=== PATIENT | male | born 1930 | race Caucasian/White ===

== ENCOUNTER 2016-12-06 16:30 | Inpatient (IN) | payer MEDICARE, OTHER ==
[~2016-12-06] VITALS: Ht 180.3 cm; Wt 80.1 kg
--- NOTE | ~2016-12-06 | CON ---
PATIENT'S NAME: KARTHIK MERAZ [facility] AGE: 86 Y [address] ROOM: [place] [address] LOCATION: [facility] ADMIT DATE: 12/06/2016 Consultation DISCHARGE DATE: FAMILY PHYSICIAN: Nolan Bautista MD ATTENDING PHYSICIAN: Nneka Gallegos CONSULTATION NOTE CHIEF COMPLAINT/REASON FOR CONSULTATION: Neck pain. 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 The patient had surgery of cervical corpectomy at C5 with decompression of spinal cord and removal of herniated disk on 12/08/2016. The patient tolerated the procedure well. The patient initially had symptoms of neck pain with radiculopathy pain radiating to his bilateral upper extremity and some lower extremity weakness. The patient reports that his symptoms has improved. He denies any radiculopathy pain or leg weakness. The patient is able to participate with PT and OT. The patient reports that he has a history of atrial fibrillation and has had ablation in 2009 at [facility] and pacemaker was also placed during that ablation. The patient reports that he was on a blood thinner, but was stopped after 6 months after the ablation. The patient currently denies chest pain, shortness of breath, abdominal pain, fever, chills, nausea, vomiting, or diarrhea. PAST MEDICAL HISTORY: 1. Atrial fibrillation. 2. Hypertension. 3. COPD. 4. Gout. 5. Long-term prednisone use. PAST SURGICAL HISTORY: 1. Appendectomy. 2. Recent surgery of cervical spinal cord decompression. 3. Ablation of atrial fibrillation. FAMILY HISTORY: Mother had a stroke and father had prostate cancer. SOCIAL HISTORY: He quit smoking 25 years ago. He is a retired [employer] worker. Seldomly drinks and he lives with his of 61 years. PATIENT'S NAME: KARTHIK MERAZ [facility] AGE: 86 Y [address] ROOM: [place] [address] LOCATION: [facility] ADMIT DATE: 12/06/2016 Consultation DISCHARGE DATE: FAMILY PHYSICIAN: Nolan Bautista MD ATTENDING PHYSICIAN: Nneka Gallegos MEDICATIONS: Please see MAR. REVIEW OF SYSTEMS: All systems have been reviewed and are negative except for what I mentioned in the HPI. PHYSICAL EXAMINATION: VITAL SIGNS: Temperature 97.4, blood pressure 167/72, respiratory rate of 12, and heart rate of 78. GENERAL APPEARANCE: The patient is alert and awake, sitting on his chair. HEENT: Head; normocephalic and atraumatic. Eyes; external ocular muscles intact. Ears; the patient wears hearing aid. Nose; no nasal discharge. NECK: The patient currently has a cervical collar and surgical site dressing is clean, dry, and intact. CHEST: Clear to auscultation bilaterally. No murmurs, rubs, or gallops. HEART: Irregularly irregular. No murmurs, rubs, or gallops heard. ABDOMEN: Soft, nontender, and nondistended. Bowel sounds present. EXTREMITIES: No edema. SKIN: Senile purpura on bilateral upper extremity. MUSCULOSKELETAL: Range of motion intact. No obvious effusion. LABELLING MACHINE OPERATOR: The patient is alert and oriented x3. Motor and sensory grossly intact. LABORATORY DATA: White blood cell count of 12.6, hemoglobin of 14.4, and platelets of 296,000. Glucose of 104, BUN of 24, creatinine of 1.2, sodium of 143, potassium of 4.1, and CO2 of 25. IMAGING STUDIES: EKG shows right bundle-branch block with possible underlying atrial fibrillation. Discernible P wave was not seen. Telemetry shows 16 runs of nonsustained ventricular tachycardia. ASSESSMENT AND PLAN: 1. Atrial fibrillation, presume persistent. The patient reports that he thought he was in normal sinus rhythm. However, on telemetry and EKG shows atrial fibrillation. Discussion was made with the patient about anticoagulation and workup including pacemaker interrogation. However, the patient reports that he does not want to have this workup done in this hospital and wants to follow up with his corporate wellness coordinator, Dr. Romero. Also discussed with the patient about blood thinners as patient has elevated CHADS-VASc score and is at risk for stroke. Even though patient cannot be started on anticoagulation due to his recent surgery, I instructed the patient to follow up with Dr. Romero about PATIENT'S NAME: KARTHIK MERAZ [facility] AGE: 86 Y [address] ROOM: [address] [address] LOCATION: [facility] ADMIT DATE: 12/06/2016 Consultation DISCHARGE DATE: FAMILY PHYSICIAN: Nolan Bautista MD ATTENDING PHYSICIAN: Nneka Gallegos anticoagulation. The patient also reports that he will follow up with Dr. Romero about his anticoagulation question (?). Continue his home medication of diltiazem extended release 360 mg p.o. daily. 2. Nonsustained ventricular tachycardia. Telemetry shows nonsustained ventricular tachycardia of 16 beats of run. The patient asymptomatic during this time. Discussed the patient about echocardiogram and pacemaker interrogation. The patient refused to have these studies done as he wants to be followed and taken care as an outpatient by his Cardiology, Dr. Romero. However, patient is open for electrolyte evaluation, and will acquire potassium and magnesium level. To keep magnesium greater than 2 and potassium greater than 4. The patient is asymptomatic. Follow up with Dr. Romero. 3. Hypertension, stable. Continue current medications. 4. Gout. Continue home medication of febuxostat. 5. History of osteoarthritis on long-term prednisone. Continue home dose of prednisone 5 mg daily. Greater than 40 minutes of spent on patient's care. Plan and assessment were discussed with the patient. The patient currently does not want to have echocardiogram and pacemaker interrogation during his stay and wants to have this workup with his corporate wellness coordinator, Dr. Romero. Will acquire electrolytes to make sure potassium and magnesium are greater than 4 and 2 respectively. Thank you very much for involving us in this patient's care. MD CHATA OTERO/sara /[id number] d: 12/09/16 224 t: 12/12/16903, CONSULTATION REPORT
--- NOTE | ~2016-12-06 | OR ---
PATIENT'S NAME: KARTHIK MERAZ [facility] AGE: 86 Y [address] ROOM: [place] [address] LOCATION: [facility] ADMIT DATE: 12/06/2016 OR/Procedure Report DISCHARGE DATE: FAMILY PHYSICIAN: Nolan Bautista MD ATTENDING PHYSICIAN: Nneka Bello SURGEON: Nneka Bello MD PHARM SPEC: See Moura. DATE OF PROCEDURE: 12/08/2016 PREOPERATIVE DIAGNOSIS: Cervical spinal cord compression secondary to herniated disk. POSTOPERATIVE DIAGNOSIS: Cervical spinal cord compression secondary to herniated disk. PROCEDURES PERFORMED: 1. Cervical corpectomy at C5 with decompression of spinal cord and removal of herniated disks including foraminotomy. 2. Structural allograft fusion with expandable cage by Globus. 3. Morselized autograft fusion. 4. Anterior cervical plating from C4 to C6 with Xtend cervical plate by Glob. 5. Use of intraoperative microscope. ANESTHESIA: General. ANESTHESIA PROVIDER: Faustino Giron MD HISTORY: The patient is an 86-year-old male who was admitted with generalized weakness, worse on the right side. Imaging studies showed a large mass pressing on his spinal cord at the level of the C5 vertebra. The impression was a large disk herniation. The patient was becoming progressively quadriparetic and could not even open his right hand fully. I recommended surgery to relieve the pressure on the patient's spinal cord and hopefully help him regain some function. I recommended the procedure described above. I explained the benefits, risks, and alternatives exhaustively to the patient and his . I basically told them that without surgery, the patient was progressing to paralysis, and with surgery, we could at least hope to stabilize his level of function and maybe even allow him to regain some function. There is, however, a very small risk of paralysis from the surgery. The patient and were agreeable to surgery. Consent was obtained. The patient was brought to the operating room for surgery. PROCEDURE IN DETAIL: In the operating room, the patient was placed in a supine position. Anesthesia was induced. He was intubated. A roll was PATIENT'S NAME: KARTHIK MERAZ [facility] AGE: 86 Y [address] ROOM: [place] [address] LOCATION: [facility] ADMIT DATE: 12/06/2016 OR/Procedure Report DISCHARGE DATE: FAMILY PHYSICIAN: Nolan Bautista MD ATTENDING PHYSICIAN: Nneka Bello placed under his shoulders, and his head was in a gel donut. The incision line was marked out along the anterior border of the right sternomastoid muscle. The whole area was prepped and draped in a sterile fashion. Local anesthesia was infiltrated. The incision was opened and deepened to the level of the platysma. The platysma was divided. The anterior border of the sternomastoid muscle was identified. Further dissection along the anterior border of the sternomastoid revealed the omohyoid muscle. Dissection was then carried out in the gap between the omohyoid and sternomastoid muscles where the carotid arteries retracted laterally and the esophagus and trachea retracted medially using the Cloward handheld retractors. Dissection continued until we got to the anterior surface of the spine. The prevertebral tissue was swept aside. The longus colli muscles were undermined on both sides, and belt sander retractors were placed. Intraoperative x-ray was obtained to verify level. Diskectomy was then carried out at C4-5 and C5-6, thereby isolating the C5 vertebra. For the diskectomy, the disk material was incised with a #15 blade, and pituitary rongeur was used to pull out disk material. A curette was used to scrape out more disk, which was removed with a pituitary rongeur. The distraction pins were used to distract the disk spaces to help visualize the disk material in the depths of the disk space. Microscope was brought in at this point, and under microscopic vision, the diskectomy was continued. Having isolated the C5 vertebra, the vertebral bone was removed piecemeal using a Leksell rongeur. This bone was saved to be used subsequently for autograft fusion. As we removed the vertebral body, we progressively got closer to the herniated disk. Once the back of the vertebra was reached, we began to see disk material. Using the Dull nerve hook, the disk material was gently pulled out and retrieved with a pituitary rongeur. Several small pieces of disk and some fairly sizable ones were removed. The posterior longitudinal ligament was also removed. The dura began to bulge back almost immediately and became more convex, whereas it had been compressed previously. Spinal fluid could be seen flowing underneath the dura. Decompression continued until I felt that we had adequate decompression of the spinal cord. Bilateral foraminotomies were carried out at C4-5 and C5-6. The adjacent endplates of C4 and C6 were then prepared for fusion. We measured out the vertebral body defects where the corpectomy had been performed. An appropriate-sized cage by Globus, the expandable cage, was picked out. This cage was filled with the patient's own bone which had been harvested earlier. The distraction pins were used to open the corpectomy defect. The cage was then inserted carefully and expanded to fill the PATIENT'S NAME: KARTHIK MERAZ [facility] AGE: 86 Y [address] ROOM: [address] [address] LOCATION: [facility] ADMIT DATE: 12/06/2016 OR/Procedure Report DISCHARGE DATE: FAMILY PHYSICIAN: Nolan Bautista MD ATTENDING PHYSICIAN: Nneka Bello corpectomy defect. We had a very snug fit. The spikes on either end of the cage engaged effectively into the undersurface of C4 and superior surface of C6. Next, an appropriate length of anterior cervical plate was selected. Two screws were attached to C4 and two screws to C6. A final x-ray was obtained to verify that the cage, plate, and screws were in satisfactory position. Irrigation was used to wash out the debris. Hemostasis was achieved. The incision was closed in layers using appropriate suture materials. Dermabond was used to close the skin. A sterile dressing was applied. The patient's anesthesia was reversed. He was extubated and taken to the recovery room to continue his recovery. I was present at and performed every aspect of this procedure, assisted at different stages by the operating room nurses. There were no apparent intraoperative complications. Swabs, needles, and instruments were all accounted for at the end of the case. Estimated blood loss was less than 200 mL. There was no reason for blood transfusion. I expect the patient to benefit from this procedure. I have already told him that improvement may not be immediate; however, hopefully, as time goes on, he should regain some function in his extremities. NNEKA BELLO MD CNO/modl /[id number] CC: Nolan Bautista MD d: 12/09/16 1159 t: 12/09/16 1716, OPERATIVE SUMMARY
--- NOTE | ~2016-12-06 | HP ---
PATIENT'S NAME: ZBIGNIEW MCDONALD [facility] AGE: 86 Y [address] ROOM: [address] [address] LOCATION: [facility] ADMIT DATE: 12/06/2016 History & Physical DISCHARGE DATE: FAMILY PHYSICIAN: Nolan Bautista MD ATTENDING PHYSICIAN: Nneka Bello DATE OF SERVICE: 12/06/2016 The patient referred by Dr. Bautista in [place]. REASON FOR REFERRAL: Weakness. PATIENT IDENTIFICATION: Zbigniew Mcdonald is an 86-year-old male. PRESENTING COMPLAINT: Weakness. HISTORY OF PRESENT ILLNESS: The patient says he has been getting numbness in his upper and lower extremities. Symptoms began about a month ago and have gotten progressively worse. In addition to the numbness and tingling, he also has weakness. He was able to ride his lawnmower two weeks ago. This week, however, he is barely able to ambulate. When he walks, he is very unsteady and has to walk with a walker. He says before all this started, he was walking fine. He also noticed that he is unable to extend the fingers of his right hand. The fingers are curled up, and it is difficult for him to extend his hand fully or to lift his right leg up off the bed. The patient was seen by Dr. Bautista today and had a CT scan of the cervical spine. The CT scan does not show any significant stenosis. There might be some calcification of the ligamentum flavum about the C4-[address] Bautista contacted me about the patient's management, and I requested for the patient to be transferred. He is being admitted for workup regarding this weakness including myelogram, both cervical and lumbar. PAST MEDICAL HISTORY: The patient has a pacemaker for atrial fibrillation. Because of this pacemaker, he is unable to have an MRI scan. He has also had an ablation for atrial fibrillation. Other medical problems include previous right knee scope, previous left hand surgery, appendectomy, bilateral cataract, right carpal tunnel and ulnar nerve release, left carpal tunnel repair. The patient has pneumonia and previous history of gout. PATIENT'S NAME: ZBIGNIEW MCDONALD [facility] AGE: 86 Y [address] ROOM: [place] [address] LOCATION: [facility] ADMIT DATE: 12/06/2016 History & Physical DISCHARGE DATE: FAMILY PHYSICIAN: Nolan Bautista MD ATTENDING PHYSICIAN: Nneka Bello CURRENT MEDICATIONS: 1. Tylenol. 2. Atorvastatin. 3. Diltiazem. 4. Tramadol. 5. Uloric. 6. Aspirin. 7. Jeanna. 8. Prednisone. 9. Enalapril. 10. Mucinex. 11. Chlorthalidone. ALLERGIES: PLEASE SEE CHART. SOCIAL HISTORY: The patient is . FAMILY HISTORY: There is no family history relevant to present problems. REVIEW OF SYSTEMS: A 10-point review of systems was carried out. The only abnormal finding is the weakness the patient presents with. PHYSICAL EXAMINATION: GENERAL: On examination, the patient is a pleasant elderly gentleman, who is alert and cooperative through the examination. VITAL SIGNS: His blood pressure is 155/178, pulse rate is 74. NEUROLOGIC: His speech is clear. Cranial nerves: No deficits seen. Motor examination: The patient has weakness in his upper and lower extremities. In his deltoids, he is 4 on the right and 5 on the left. Biceps are 4+ bilaterally, triceps are 4 bilaterally. Hip flexors: His right hip flexor is barely a 3, the left one is a 4, quadriceps 5, dorsi and plantar flexors 5. Reflexes: The patient's reflexes are significantly increased, particularly the knee jerk on the right side. EXTREMITIES: The patient has some curling of the fingers on the right side. He is unable to extend his hand fully. He has bruising to his skin. SKIN: No skin rashes or skin masses. HEENT: His head is atraumatic. Eyes and ears: No evidence of trauma. Gait is not tested. CARDIOVASCULAR SYSTEM: Heart sounds are present. RESPIRATORY SYSTEM: The patient is not short of breath at bedside. PATIENT'S NAME: ZBIGNIEW MCDONALD [facility] AGE: 86 Y [address] ROOM: [address] [address] LOCATION: [facility] ADMIT DATE: 12/06/2016 History & Physical DISCHARGE DATE: FAMILY PHYSICIAN: Nolan Bautista MD ATTENDING PHYSICIAN: Nneka Bello ABDOMEN: Protuberant. REVIEW OF IMAGING STUDIES: The patient has had a CT scan of the cervical spine performed today. The CT scan showed some stenosis of the C4-5 level. Unfortunately, the CAT scan does not show the spinal cord in detail, and it is difficult to really see the amount of stenosis the patient has. ASSESSMENT: An 86-year-old male with progressive weakness of his extremities. Imaging studies suggest spinal stenosis at the C4-5 level. The patient is unable to undergo MRI scan because he has a pacemaker. MEDICAL DECISION MAKING: I reviewed the situation with the patient and his . I told them that the patient probably has compression of his spinal cord at some level. The other consideration would be Joanne Gehrig disease. The patient has been scheduled for myelogram tomorrow to help identify the cause of his weakness. His treatment will depend on the myelogram findings. NNEKA BELLO MD CNO/modl /[id number] CC: Nolan Bautista MD D: [id number] T: [id number] HISTORY & PHYSICAL
--- NOTE | ~2016-12-06 | DS ---
PATIENT'S NAME: KARTHIK MERAZ [facility] AGE: 86 Y [address] ROOM: [address] [address] LOCATION: [facility] ADMIT DATE: 12/06/2016 Discharge Summary DISCHARGE DATE: 12/11/2016 FAMILY PHYSICIAN: Nolan Bautista MD ATTENDING PHYSICIAN: Estrellita Gallegos REASON FOR ADMISSION: The patient was referred by Dr. Bautista in [place] with weakness in all his extremities. Weakness that came on over the last couple of weeks prior to admission. The patient had gone from being able to mow his lawn or ride his lawnmower to the point where he was very unsteady and barely able to ambulate. It was not possible to perform MRI for the patient. He, therefore, had a cervical myelogram. The cervical myelogram showed a very large disk herniation at the level of C5 with significant spinal cord compression. TREATMENT RENDERED: The patient was taken to the operating room on 12/08/2016. He underwent cervical corpectomy at the C5 level with fusion and instrumentation. Postoperatively, his weakness improved dramatically and he became able to feed himself again and to ambulate. He was also assisted by Physical Therapy. By 12/11/2016, the patient was well enough to go home and was discharged on that day. 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 PLAN: The patient will be followed up in the Neurosurgery Clinic to see how he is doing. ESTRELLITA GALLEGOS MD CNO/modl /[id number] CC: Nolan Bautista MD d: 01/07/17 0646 t: 01/07/17 1509, DISCHARGE SUMMARY
--- NOTE | ~2016-12-06 | CON ---
PATIENT'S NAME: RAH MERAZH Hermilo [facility] AGE: 86 Y [address] ROOM: [place] [address] LOCATION: [facility] ADMIT DATE: 12/06/2016 Consultation DISCHARGE DATE: FAMILY PHYSICIAN: Nolan Bautista MD ATTENDING PHYSICIAN: Nneka Gallegos consult for Dr. Gallegos. HISTORY OF PRESENT ILLNESS: This 86-year-old gentleman is referred for rehab evaluation and possibly admission. He was, as per history and physical, admitted on 12/06/2016 and did undergo cervical spine corpectomy C5 and cervical spine decompression, most probably C5-6, disk decompression of C5-6, and fusion with plating done on 12/08/2016, details on record. He was having marked weakness, numbness, and tingling in bilateral upper extremities, and to some extent, bilateral lower extremities. 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 Possibly, he will go further evaluation, possibly surgical procedure on the lumbar spine. However, at the present time, he gives past history as follows: 1. History of status post pacemaker with atrial fibrillation. 2. History of status post ablation for atrial fibrillation. 3. Status post right knee scope. 4. Left hand carpal tunnel syndrome relief and redo. 5. Status post appendectomy. 6. Bilateral cataract extractions. 7. Status post right carpal tunnel release. 8. Status post right ulnar nerve mobilization. 9. History of gout. 10. History of pneumonia, and recovered well. SOCIAL HISTORY: He does not smoke and/or drink alcohol. PHYSICAL EXAMINATION: GENERAL: He is now alert, oriented, slightly impulsive. VITAL SIGNS: Blood pressure 153/65, temperature 97.6, pulse 84, and respiration rate 12. He stands 5 feet 11 inches and weighs 79.6 kg. NEUROLOGIC: He can move all 4s. Muscle strength throughout is, at the present time, about 3+, especially in bilateral upper extremities, 4- with decreased endurance. His tendon reflexes are 1+ throughout. He has good bowel and bladder control. PATIENT'S NAME: KARTHIK MERAZ [facility] AGE: 86 Y [address] ROOM: [place] [address] LOCATION: [facility] ADMIT DATE: 12/06/2016 Consultation DISCHARGE DATE: FAMILY PHYSICIAN: Nolan Bautista MD ATTENDING PHYSICIAN: Nneka Gallegos He has atrophy in bilateral thenar imminences, status post carpal tunnel release as stated above. MEDICATIONS: He is on the following medications: 1. Zofran. 2. Morphine sulfate. 3. Halcion. 4. Fleet Enema. 5. Dulcolax. 6. Tigan. 7. NaCl 0.9%. 8. Prednisone. 9. Claritin. 10. Vasotec. 11. Cardizem. 12. Tramadol. 13. Uloric. 14. [place]. 15. Lipitor. 16. Aspirin. 17. Tylenol. 18. Cefazolin. 19. Phenergan. 20. Dilaudid. 21. Fentanyl. 22. Decadron. ASSESSMENT AND PLAN: At the present time, he is able to show muscle strength of about 4- to 3+ throughout with marked decreased endurance, especially in bilateral upper extremities. He has been initiated on PT and OT, which I will continue. He is at risk of falling and needs to have hands-on when up and around. I feel that this gentleman will benefit from intensive rehabilitation of about 2 weeks, and planning to see if he would undergo back surgery for lumbar spine stenosis and discharge thereafter with outpatient therapy. Thank you for this referral. All the above has been explained to him in detail. He verbalized understanding and agreement. PATIENT'S NAME: KARTHIK MERAZ [facility] AGE: 86 Y [address] ROOM: [place] [address] LOCATION: [facility] ADMIT DATE: 12/06/2016 Consultation DISCHARGE DATE: FAMILY PHYSICIAN: Nolan Bautista MD ATTENDING PHYSICIAN: Nneka Gallegos CIPRIANO PATEL MD WMS/modl /[id number] d: 12/09/16 1136 t: 05/30/17 0714, CONSULTATION REPORT
[2016-12-06] MEDS ORDERED: CARTIA XT180 MG PO (18:03)
[2016-12-06] MEDS ORDERED: LIPITOR20 M1 PO (18:03)
[2016-12-06] MEDS ORDERED: ENALAPRIL MALEAT5 MG PO (18:03)
[2016-12-06] MEDS ORDERED: ALLEGRA180 MG PO (18:04)
[2016-12-06] MEDS ORDERED: HYGROTON25 MG PO (18:04)
[2016-12-06] MEDS ORDERED: ULORIC80 MG PO (18:04)
[2016-12-06] MEDS ORDERED: ASPIRIN LO-DOSE81 MG PO (18:04)
[2016-12-06] MEDS ORDERED: ULTRAM50 MG PO (18:04)
[2016-12-06] MEDS ORDERED: TYLENOL325 MG PO (18:05)
[2016-12-06] MEDS ORDERED: DELTASONE5 MG PO (18:05)
--- NOTE | 2016-12-06 19:18 | NUR ---
Pt is an 86 yo male admitted by private vehicle from [facility]. patient lives in [place] w/. He states they went to [place] on November 02 and the numbness and tingling started in his hands at that time. He went to the dr, was told to go to , that helped a little, but then didn't seem to help and he hurt one day worse after therapy, did go to a chiropractor which seemed to help, but his numbness and weakness is progressing. his feet are now numb, he can't walk for the last 3-4 days. has been using a w/c to get around. patient used to work for the [employer] for years, has been retired for a little over 30 years. Saline lock is started in left upper antecubital space on 2nd try. Education is given as documented. patient and deny questions. pneumatics are on bilat calves. patient rhona well. call light is within reach. patient denies needs. fall and allergy bracelets on. Report is given to CATHY Christian.
[2016-12-06 23:49] LABS: BASOPHIL # 0.1 K/uL (0.0-0.2); BASOPHIL % 0.6 %; EOSINOPHIL # 0.4 K/uL (0.0-0.5); EOSINOPHIL % 4.1 %; HEMATOCRIT 40.1 % (33.0-50.0); HEMOGLOBIN 13.5 g/dL (11.0-16.0); IMMATURE GRANULOCYTE % 0.4 %; LYMPHOCYTE % 18.6 %; MCH 31.4 pg (27.0-34.0); MCHC 33.7 gm/dL (32.0-36.5); MCV 93.3 fl (83.0-98.0); MONOCYTE % 9.2 %; MPV 9.5 fl (9.4-12.4); NEUTROPHIL % 67.1 %; NRBC % 0 /100WBC (0-0.00); PLATELET COUNT 271 K/uL (150-450); RDW-CV 12.8 % (11.9-14.6); WBC 10.5 K/uL (4.0-11.0)
[2016-12-06 23:59] LABS: INR - (THERAPEUTIC) 0.95 (0.92-1.07); PTT 24 SECONDS (25-32)
[2016-12-07 00:07] LABS: ALBUMIN 3.2 gm/dL (3.5-5.0); ANION GAP 14.9 (10.0-19.0); CALCIUM 8.7 mg/dL (8.5-10.5); CREATININE 1.4 mg/dL (0.6-1.3); POTASSIUM 3.9 mMol/L (3.7-5.1); TOTAL BILIRUBIN 0.4 mg/dL (0.0-1.5); TOTAL PROTEIN 5.9 g/dL (6.0-8.4)
--- NOTE | 2016-12-07 04:28 | NUR ---
Significant Event: PATIENT A/OX3. STATES NUMBNESS AND TINGLING TO HANDS AND FEET. PAIN TO RIGHT SHOULDER. ON SCHEDULED TRAMADOL AND TYLENOL. WEAKNESS NOTED IN ALL EXTREMITIES. RIGHT HAND CONTRACTED AND DOES NOT EXTEND OPEN ALL OF THE WAY. UP 1 ASSIST GAIT BELT AND WALKER. PACED RHYTHM. AFEBRILE. SBPS RANGE FROM 130S-150S. HR 60S-8-S. LUNGS CLEAR ON ROOM AIR. SKIN TEAR TO BOTH ELBOWS BILATERALLY. PETROLEUM GAUZE, ABD, AND GAUZE WRAP APPLIED. SCATTERED BRUISING. ABRASIONS AND BRUISINGS TO FEET BILATERALLY. SCCDS INTACT. IV TO LEFT AC SALINE LOCKED. REGULAR DIET. NO CAFFEINE DUE TO MYELOGRAM IN AM. MYELOGRAM OF CERVICAL/LUMBAR/THORACIC IN AM. TAKES MEDS WHOLE. Follow up: MYELOGRAM IN AM.
--- NOTE | 2016-12-07 13:28 | NUR ---
Significant Event: PT ALERT AND ORIENTED X3. PERRLA. NUMBNESS/TINGLING REMAIN TO HANDS/FEET. GENERALIZED WEAKNESS; MOVES ALL EXTREMITIES. TRANSFERS WITH 1-ASSIST/GAIT BELT/WALKER. PT HAS A PACEMAKER. VITAL SIGNS STABLE; ON ROOM AIR. HAS COMPLAINED OF PAIN TO R)SHOULDER; SCHEDULED TYLENOL AND ULTRAM HAVE BEEN HELPING WITH PAIN. SKIN TEARS TO BILATERAL ELBOWS; L)ELBOW COVERED WITH PETROLEUM GAUZE/KERLIX. BILATERAL CALF PUMPS ON. PT WENT DOWN FOR A MYELOGRAM PER DR. BELLO. DISCUSSED THE RESULTS WITH THE PT AND ; WILL BE PROCEEDING WITH SURGERY TOMORROW. PT WILL BE NPO AT MIDNIGHT FOR A CERVICAL CORPECTOMY. IV FLUIDS TO BE STARTED BEFORE THE PT GOES TO SURGERY. Follow up: PRE-OP CHECK-LIST; NPO AT MIDNIGHT; SURGERY TOMORROW ABOUT 1100.
[2016-12-07 13:34] LABS: BASOPHIL # 0.1 K/uL (0.0-0.2); BASOPHIL % 0.6 %; EOSINOPHIL # 0.2 K/uL (0.0-0.5); EOSINOPHIL % 1.2 %; HEMATOCRIT 42.8 % (33.0-50.0); HEMOGLOBIN 14.4 g/dL (11.0-16.0); IMMATURE GRANULOCYTE # 0.1 K/uL (0.0-0.3); IMMATURE GRANULOCYTE % 0.4 %; LYMPHOCYTE # 1.1 K/uL (0.8-4.0); LYMPHOCYTE % 8.4 %; MCH 31.5 pg (27.0-34.0); MCHC 33.6 gm/dL (32.0-36.5); MCV 93.7 fl (83.0-98.0); MONOCYTE # 0.5 K/uL (0.0-1.0); MONOCYTE % 4.3 %; NEUTROPHIL # (ANC) 10.7 K/uL (1.4-9.0); NEUTROPHIL % 85.1 %; NRBC % 0 /100WBC (0-0.00); PLATELET COUNT 296 K/uL (150-450); RBC 4.57 M/uL (3.50-5.50); RDW-CV 12.7 % (11.9-14.6); WBC 12.6 K/uL (4.0-11.0)
[2016-12-07 13:48] LABS: INR - (THERAPEUTIC) 0.95 (0.92-1.07); PTT 25 SECONDS (25-32)
[2016-12-07 13:54] LABS: ALBUMIN 3.6 gm/dL (3.5-5.0); ANION GAP 16.1 (10.0-19.0); CALCIUM 9.4 mg/dL (8.5-10.5); CREATININE 1.2 mg/dL (0.6-1.3); POTASSIUM 4.1 mMol/L (3.7-5.1); TOTAL PROTEIN 6.4 g/dL (6.0-8.4)
[2016-12-07 13:56] LABS: TOTAL BILIRUBIN 0.7 mg/dL (0.0-1.5)
--- NOTE | 2016-12-08 03:30 | NUR ---
Significant Event: Patient is alert and oriented x 3. VSS on room air. HRs in the 60s-70s. SBPs in the 130s-140s. Afebrile. Up with 2 assist, walker, and gaitbelt to bedside commode. Numbness/tingling to bilateral hands and feet. Generalized weakness throughout. Right hand contractured. PERRLA. Receives scheduled Tylenol and Ultram for pain. Left AC IV, saline locked. Band-aids intact to bilateral elbows. NPO. Patient is pleasant and cooperative with cares. Follow up: C5 Corpectomy today at 1100.
--- NOTE | 2016-12-08 11:53 | NUR ---
12/08/16: SECOND ASSESSMENT WAS NOT CHARTED DUE TO THE PT BEING IN SURGERY. PT WAS TAKEN TO SURGERY PER SURGERY NURSES AT 0840.
--- NOTE | 2016-12-08 18:47 | NUR ---
Significant Event: PT WENT TO SURGERY FROM [id number] FOR A C5 CORPECTOMY. PT IS ALERT AND ORIENTED X3. PERRLA. PT STATES THAT NUMBNESS/TINGLING TO BILATERAL HANDS/FEET HAVE DECREASED. PT IS ABLE TO OPEN R)HAND BETTER AND MOVE R)LEG BETTER. MOVES ALL EXTREMITIES SPONTANEOUSLY AND TO COMMAND. PT HAS A PACEMAKER. SKIN TEARS TO BILATERAL ELBOWS-COVERED WITH BAND-AIDS. BILATERAL CALF PUMPS ON. IV TO L)AC SALINE LOCKED. NEW IV STARTED IN SURGERY TO R)UPPER ARM; INFUSING IV FLUIDS WITHOUT COMPLICATIONS. DIET TOLERATED; HAS HAD 2 VANILLA ICECREAMS WITH NO PROBLEMS. DRESSING TO ANTERIOR NECK IS CLEAN/DRY/INTACT. NORCO AND IV FENTANYL GIVEN IN PACU AT 1421 AND 1422. PT HAS DENIED ANY NEED FOR PAIN MEDICATIONS SINCE ARRIVING FROM PACU. POST-OP VITAL SIGNS STABLE. AT BEDSIDE. Follow up: CONTINUE TO MONITOR.
--- NOTE | 2016-12-09 06:40 | NUR ---
Significant Event: Patient a/o x 3. Numbness to bilateral hands. R) hand able to open and close with much improvement. Moves BLE spontaneously and to command with equal strength. Ambulated to the bathroom with 1 assist this shift. Pacemaker. HTN SBPS-160S. Room air. Lungs clear and dim. Diet as tolerated. Voids per bathroom and urinal without difficulty. [place] barrier intact to anterior neck. R) and L) AC PIVs SL. Follow up:Rehab soon.
--- NOTE | 2016-12-09 18:57 | NUR ---
Significant Event: a/o x 3. denies pain, states "generalized discomfort" with morning assessment. equal strength throughout. numbness/tingling to right hand is resolving/improving throughout shift. Tele with afib. does have pacemaker. dsg to anterior neck C/D/I. [place] collar on at all times. ambulates with walker/gait belt and SBA. Voids per bathroom. Moderate BM this shift. Dr. Elizabeth saw patient for rehab evaluation this shift. Care management to visit with patient tomorrow about discharge planning. Patient lives in [place] with his .
[2016-12-09 21:12] LABS: CALCIUM 8.5 mg/dL (8.5-10.5)
[2016-12-09 21:13] LABS: ALBUMIN 3.1 gm/dL (3.5-5.0); ANION GAP 14.3 (10.0-19.0); CREATININE 1.2 mg/dL (0.6-1.3); POTASSIUM 4.3 mMol/L (3.7-5.1); TOTAL BILIRUBIN 0.4 mg/dL (0.0-1.5)
[2016-12-09 21:14] LABS: MAGNESIUM 1.9 mg/dL (1.8-2.6)
--- NOTE | 2016-12-10 04:07 | NUR ---
Significant Event: Patient A/Ox3. States numbness and tingling to hands bilaterally, but it is improving. Moves all extremities spontaneously and to command with moderate strength throughout. Afebrile. SBPs ranges from 140s-170s. HR in the 80s. Put on 1L of O2 at 0300 for SATs dropping to 86%, otherwise room air during the day. States minimal pain to back. On scheduled tramadol and tylenol. Gave 1gm of mag sulfate for mg level of 1.9. paced rythm - in chronic afib. Regular diet. Up 1 assist, gait belt and walker. IV to right AC running normal saline at 75ml/hr. IV to left AC saline locked. [place] collar on at all times. [place] to anterior neck c/d/i. Follow up:
--- NOTE | 2016-12-10 16:07 | NUR ---
I did call Xiomara on [facility] and she thinks he would be a good candidate so to let her know. I then went and spoke with pt, and daughter. I explained the difference between swingbed and acute rehab and how medicare works and pays. He states he understands but really just wants to go to [facility] but if he has to he could do rehab. He states it will just work out better for him and his . I did call [facility] and faxed information and she stated they will accept pt and can tomorrow to have Dr Gallegos call Dr Whittington for acceptance to [phone]. I did update Eileen the nurse and also Xiomara with [facility]. I will also update pt. WIll continue to follow.
--- NOTE | 2016-12-10 17:50 | NUR ---
Significant Event:Patient is alert and oriented times three. PERRLA. Patient states right hand tingling sensation better at night and worse in the morning. Equal strength noted throughout. Lungs clear and diminished throughout. VSS on 1L to room air. Atrial fibrillation on telemetry. Bowel sounds active. Patient voids per the bathroom with 1 assist, gaitbelt, and walker. Dressing to neck is clean, dry and intact. Calf pumps on bilaterally. Patient denies any pain. Peripheral IV to right forearm is saline locked. patient tolerates a regular diet. Follow up:Patient to discharge to [facility] in the morning, Dr. Gallegos called physician to physician tonight and filled out discharge medications.
[2016-12-11 03:57] LABS: BASOPHIL # 0.1 K/uL (0.0-0.2); BASOPHIL % 0.5 %; EOSINOPHIL # 0.2 K/uL (0.0-0.5); EOSINOPHIL % 1.9 %; HEMATOCRIT 37.5 % (33.0-50.0); HEMOGLOBIN 12.2 g/dL (11.0-16.0); IMMATURE GRANULOCYTE # 0.1 K/uL (0.0-0.3); IMMATURE GRANULOCYTE % 0.7 %; LYMPHOCYTE # 1.6 K/uL (0.8-4.0); LYMPHOCYTE % 15.5 %; MCH 31.3 pg (27.0-34.0); MCHC 32.5 gm/dL (32.0-36.5); MCV 96.2 fl (83.0-98.0); MONOCYTE % 9.3 %; MPV 10.3 fl (9.4-12.4); NEUTROPHIL # (ANC) 7.4 K/uL (1.4-9.0); NEUTROPHIL % 72.1 %; NRBC % 0 /100WBC (0-0.00); PLATELET COUNT 260 K/uL (150-450); WBC 10.2 K/uL (4.0-11.0)
[2016-12-11 04:08] LABS: ANION GAP 12.7 (10.0-19.0); BLOOD UREA NITROGEN 21 mg/dL (6-24); CALCIUM 8.8 mg/dL (8.5-10.5); CHLORIDE 109 mMol/L (96-110); CO2 25 mMol/L (22-32); CREATININE 0.9 mg/dL (0.6-1.3); ESTIMATED GFR (MDRD EQUATION) > 60; MAGNESIUM 1.8 mg/dL (1.8-2.6); POTASSIUM 3.7 mMol/L (3.7-5.1); SODIUM 143 mMol/L (135-145)
--- NOTE | 2016-12-11 04:57 | NUR ---
Significant Event: Patient is alert and oriented x 3. States pain is tolerable. On routine Tylenol and Ultram. C/O slight numbness to right hand/fingers that gets worse in the morning. PERRL. Equal and moderate strength to upper extremities, strong and equal strength to bilateral lower extremities. 2+ pulses. On room air-1L O2 NC. Lungs clear and diminished. Chronic afib. Bowel sounds active. No BM this shift. Good appetite. SBA, gait belt, walker. Dressing to neck C/D/I. SCDs in place. PIV to right forearm SL with no complications. IS at bedside. Occasional productive cough. Follow up: patient to discharge to [facility] prior to noon-Dr. Gallegos called physician to physician already and filled out discharge medications (does not need to see patient prior to d/c if stable)
--- NOTE | 2016-12-11 12:32 | NUR ---
I called [facility] this am and faxed her orders. I explained DR Gallegos did talk with DR Whittington. She stated she will call me back to make sure everything is good. Isatu stated there was a place that pt had a run of [facility] and would like the hospitalist to call him. I did have DR Madrigal call his cell [phone] and per her pt is good to go. I updated Elana RN and she called Dr Gallegos and he wants to see the incision and unsure when he will get over. I did call and Isatu thinks as long as it is before shift change. I told Elana to make sure he gets over and we do not need to wait that long. I did talk with pt and explained we are good to go just waiting on DR Gallegos.
--- NOTE | 2016-12-11 12:45 | NUR ---
Significant Event: PT ALERT AND ORIENTED X3. PERRLA. PT STATES THAT THERE IS SLIGHT TINGLING TO R)FINGERS. TRANSFERS WITH STAND-BY ASSIST/GAIT BELT/WALKER. VOIDS PER BATHROOM. NO BM THIS SHIFT. SCHEDULED TYLENOL/ULTRAM HAVE BEEN HELPING WITH PT'S PAIN. TAKES MEDICATIONS WHOLE WITH WATER. PT HAS A PACEMAKER; CHRONIC A-FIB WITH RATES IN THE 80'S-90'S. GOOD APPETITE. VISTA COLLAR INTACT. TOOK DRESSING OFF THIS MORNING; EDGES APPROXIMATED TO SURGICAL INCISION. IV AND TELEMETRY D/C'D. Follow up: PLAN TO TRANSFER TO [facility] TODAY PER PRIVATE AUTO; TRANSFER PACKET WILL BE SENT WITH PT; REPORT WILL BE CALLED AND GIVEN TO RECEIVING NURSE.
[2017-02-06] MEDS ORDERED: MUCINEX600 MG PO (11:22)
== END 2016-12-11 13:11 | disposition swing bed (61) | DRG 472 ==
LOC: GNTU 17:20
PROVIDERS: Internal Medicine; Nurse Practitioner Family; ADMIT Neurological Surgery
DX: M50.021 Cervical disc disorder at C4-C5 level with myelopathy (principal); I47.2 Ventricular tachycardia; I48.1 Persistent atrial fibrillation; G47.34 Idiopathic sleep related nonobstructive alveolar hypoventilation; M50.022 Cervical disc disorder at C5-C6 level with myelopathy; M48.02 Spinal stenosis, cervical region; Z95.0 Presence of cardiac pacemaker; M10.9 Gout, unspecified; M19.90 Unspecified osteoarthritis, unspecified site
CPT/HCPCS: C1713; J0690; J1100; J2405; J3010; J3475; J7030; J7512

== ENCOUNTER 2016-12-23 09:00 | Inpatient (IN) | payer MEDICARE ==
[~2016-12-23] VITALS: Ht 180.3 cm; Wt 76.5 kg
--- NOTE | ~2016-12-23 | DS ---
PATIENT'S NAME: KARTHIK MERAZ [facility] AGE: 86 Y [address] [place]: [id number] [address] LOCATION: [facility] ADMIT DATE: 12/23/2016 Discharge Summary DISCHARGE DATE: 12/25/2016 FAMILY PHYSICIAN: Nolan Bautista MD ATTENDING PHYSICIAN: Estrellita Gallegos REASON FOR ADMISSION: The patient was admitted from outpatient clinic where he had come for routine followup after surgery. Postop x-rays performed in the clinic showed that the hardware used for his cervical spinal fusion had become dislodged. It was necessary to revise the fusion and replace the hardware. Neurologically, the patient had no deficits, in fact he had improved significantly from his original preoperative status. TREATMENT RENDERED: The patient was taken to the operating room yesterday, December 24, 2016. He underwent revision of his cervical corpectomy with extension of the corpectomy to include C6 as well and replacement of the hardware which had become dislodged after his initial surgery. Postoperatively, the patient is doing well. He has just had breakfast and is sitting up comfortably in bed. He has normal strength in his extremities. Postoperative x-rays performed this morning show that the graft, screws, and plate are in satisfactory position. The patient is being discharged home today. I have advised him strongly to keep his cervical collar on at all times except to remove it for showering. While in the shower, he should still maintain his neck in a straightly position as possible. I will follow him up in 2 weeks' time with repeat x-rays to confirm that alignment is maintained and that no hardware failure has happened. ESTRELLITA GALLEGOS MD CNO/modl /[id number] CC: Nolan Bautista MD d: 12/25/16 0938 t: 01/06/172108, DISCHARGE SUMMARY
--- NOTE | ~2016-12-23 | HP ---
PATIENT'S NAME: ZBIGNIEW [facility] AGE: 86 Y [address] ROOM: [place] [address] LOCATION: [facility] ADMIT DATE: 12/23/2016 History & Physical DISCHARGE DATE: FAMILY PHYSICIAN: Nolan Bautista MD ATTENDING PHYSICIAN: Nneka Gallegos DATE OF SERVICE: 12/23/2016 PATIENT IDENTIFICATION: Zbigniew Mcdonald is an 86-year-old male. PRESENTING COMPLAINT: None. HISTORY OF PRESENT ILLNESS: The patient was seen in clinic today for followup visit. He recently had cervical corpectomy at C5 with fusion and instrumentation. The patient did really well after the corpectomy, and both his hand function and his walking have improved. He was seen in clinic today for followup, and routine x-rays were done. The x-rays showed that the hardware had become displaced anteriorly, and the bottom screws for his plate system appear to have pulled out from the bottom vertebra. With this finding, it was necessary to readmit the patient in order for him to undergo revision of the fusion. PAST MEDICAL HISTORY: Please see chart. CURRENT MEDICATIONS: 1. Aspirin. 2. Acetaminophen. 3. [place]. 4. Enalapril. 5. Diltiazem. 6. Uloric. 7. Jeanna. 8. Prednisone. 9. Tramadol. ALLERGIES: ALLOPURINOL. REVIEW OF SYSTEMS: A 10-point review of systems was carried out. The only abnormal finding is as described in the patient's history of present illness. PATIENT'S NAME: ZBIGNIEW [facility] AGE: 86 Y [address] ROOM: [place] [address] LOCATION: [facility] ADMIT DATE: 12/23/2016 History & Physical DISCHARGE DATE: FAMILY PHYSICIAN: Nolan Bautista MD ATTENDING PHYSICIAN: Nneka Gallegos PHYSICAL EXAMINATION: GENERAL: The patient is a healthy-looking male who is alert and cooperative through the examination. VITAL SIGNS: Stable. NEUROLOGIC: Speech is intact. Cranial Nerves: No deficits seen. Motor Examination: The patient still has some difficulty walking, but he has made a significant improvement from his preoperative status prior to the cervical corpectomy. He is able to ambulate independently, and his right hand can now open up, which he was unable to do before. CARDIOVASCULAR: Heart sounds present. RESPIRATORY: The patient is not short of breath at bedside. EXTREMITIES: No cyanosis or clubbing. SKIN: No skin rashes or skin masses. HEAD: His head is atraumatic. EYES AND EARS: No evidence of trauma. REVIEW OF IMAGING STUDIES: The patient has had a cervical spine x-ray performed today. The cervical spine x-ray shows dislodgement of the cervical cage used for the patient's corpectomy. This is new since immediate postop x-rays. It appears the bottom screws have also unscrewed from the bottom vertebra. ASSESSMENT: An 86-year-old male status post cervical corpectomy, now presenting with hardware failure. PLAN: The patient is being admitted for revision of his C5 corpectomy with fusion and instrumentation. The procedure will be carried out on December 24, 2016. MD CARLOS CHANDRAO/sara /[id number] CC: Nolan Bautista MD P D: 903 T: 652 HISTORY & PHYSICAL
--- NOTE | ~2016-12-23 | OR ---
PATIENT'S NAME: KARTHIK MERAZ [facility] AGE: 86 Y [address] [id number] [address] LOCATION: [facility] ADMIT DATE: 12/23/2016 OR/Procedure Report DISCHARGE DATE: 12/25/2016 FAMILY PHYSICIAN: Nolan Bautista MD ATTENDING PHYSICIAN: Nneka Bello SURGEON: Nneka Bello MD MARKETING ASSIST[employer]: Lyudmila Fournier. DATE OF PROCEDURE: 12/24/2016 PREOPERATIVE DIAGNOSIS: Hardware failure of cervical spine fusion. POSTOPERATIVE DIAGNOSIS: Hardware failure of cervical spine fusion. PROCEDURES PERFORMED: 1. Removal of cervical plate and cage from C5 corpectomy. 2. C6 corpectomy. 3. Structural allograft and morcellized autograft fusion from C4-C7. 4. Anterior cervical plate from C4-C7. ANESTHESIA: General. ANESTHESIA PROVIDER: Faustino Giron M.D. 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 The patient came for routine followup and had followup x-rays done. The followup x-rays showed that the hardware that was used for his cervical corpectomy had become partially loose and was not holding as well as right after surgery. It was necessary to revise the fusion and replace the hardware. Procedure, benefits, and risks were discussed with the patient and with his consent, he was brought back to the operating room for surgery. PROCEDURE IN DETAILS: In the operating room, the patient was anesthetized and intubated. His neck was maintained in slight extension. His head was supported on a gel donut. The whole area around incision was prepped and draped in a sterile fashion. Local anesthesia was infiltrated. The previous incision was reopened. Dissection was carried out between the sternomastoid and omohyoid muscles until we got to the anterior surface of the cervical spine. Self-retaining retractors were placed. The anterior cervical plate was seen and has had been observed on x-ray, it was partly lose. The hardware was extracted. The metal cage use of the corpectomy was also extracted. The C6 vertebral body was partly destroyed by the loosened hardware. It was, therefore, necessary to complete the corpectomy at C6 as there was really no bone left to hold new hardware. PATIENT'S NAME: KARTHIK MERAZ [facility] AGE: 86 Y [address] ROOM: [place] [address] LOCATION: [facility] ADMIT DATE: 12/23/2016 OR/Procedure Report DISCHARGE DATE: 12/25/2016 FAMILY PHYSICIAN: Nolan Bautista MD ATTENDING PHYSICIAN: Nneka Bello Having completed the decompression, a new piece of allograft material was selected. At this time, we used a fibular strut. The strut was caught to fit the corpectomy defect at C5 and C6. The patient's own bone, which had been harvested was ground up and put in the center of the corpectomy graft. The graft was slotted into the space between C4 and C7. We had a very good fit. Next, an anterior cervical plate was used to reinforce the fusion. The plate was slightly contoured to match the curvature of the spine. Two screws were affixed into C4 and two screws were affixed into C7. Intraoperative x-ray was obtained to confirm that the screws, graft, and plates were in satisfactory position. Irrigation was used to wash out the debris and hemostasis was achieved. The incision was closed in layers using appropriate suture materials. A sterile dressing was applied. The patient's anesthesia was reversed. He was extubated and taken to the recovery room to complete his recovery. I was present at and performed every aspect of this procedure, assisted at some stages by operating room nurses. There were no apparent intraoperative complications. Swabs, needles, and instruments were all accounted for at the end of the case. Estimated blood loss was less than 300 mL and there was no reason for blood transfusion. I expect the patient to benefit from this procedure. I expect that his neurological condition will continue to improve. NNEKA BELLO MD CNO/modl /[id number] CC: Nolan Bautista MD d: 12/25/16 1033 t: 01/06/172, OPERATIVE SUMMARY
[~2016-12-23 09:00] MED LIST: ALLEGRA180 MG PO; ASPIRIN LO-DOSE81 MG PO; CARTIA XT180 MG PO; DELTASONE5 MG PO; ENALAPRIL MALEAT5 MG PO; HYGROTON25 MG PO; LIPITOR20 M1 PO; TYLENOL325 MG PO; ULORIC80 MG PO; ULTRAM50 MG PO
[2016-12-23] MEDS ORDERED: KCL - MICRO-K10 MEQ PO (17:20)
[2016-12-23 18:28] LABS: BASOPHIL # 0.1 K/uL (0.0-0.2); BASOPHIL % 0.6 %; EOSINOPHIL # 0.1 K/uL (0.0-0.5); EOSINOPHIL % 0.5 %; HEMATOCRIT 39.7 % (33.0-50.0); IMMATURE GRANULOCYTE # 0.1 K/uL (0.0-0.3); IMMATURE GRANULOCYTE % 0.5 %; LYMPHOCYTE # 1.2 K/uL (0.8-4.0); LYMPHOCYTE % 12.7 %; MCH 31.3 pg (27.0-34.0); MCHC 32.7 gm/dL (32.0-36.5); MCV 95.4 fl (83.0-98.0); MONOCYTE # 0.7 K/uL (0.0-1.0); MONOCYTE % 6.7 %; MPV 9.7 fl (9.4-12.4); NEUTROPHIL # (ANC) 7.6 K/uL (1.4-9.0); NRBC % 0 /100WBC (0-0.00); RBC 4.16 M/uL (3.50-5.50); RDW-CV 12.6 % (11.9-14.6); WBC 9.7 K/uL (4.0-11.0)
[2016-12-23 18:37] LABS: PLATELET COUNT 368 K/uL (150-450)
[2016-12-23 18:46] LABS: ALBUMIN 3.2 gm/dL (3.5-5.0); ANION GAP 13.1 (10.0-19.0); CREATININE 1.2 mg/dL (0.6-1.3); POTASSIUM 4.1 mMol/L (3.7-5.1); TOTAL BILIRUBIN 0.4 mg/dL (0.0-1.5); TOTAL PROTEIN 6.8 g/dL (6.0-8.4)
[2016-12-23 20:01] LABS: INR - (THERAPEUTIC) 0.94 (0.92-1.07); PROTIME 9.9 SECONDS (9.8-11.4); PTT 28 SECONDS (25-32)
[2016-12-25] MEDS ORDERED: NORCO 5-325 TA1 EACH PO (09:35)
[2017-02-06] MEDS ORDERED: MUCINEX600 MG PO (11:22)
== END 2016-12-25 10:05 | disposition disaster alternative care site (69) | DRG 473 ==
LOC: GICU 09:00
PROVIDERS: Anesthesiology; ADMIT Neurological Surgery
PROC: 0RP104Z Removal of Internal Fixation Device from Cervical Vertebral Joint, Open Approach (ICD-10-PCS; principal; 2016-12-24)
PROC: 0RG20K0 Fusion of 2 or more Cervical Vertebral Joints with Nonautologous Tissue Substitute, Anterior Approach, Anterior Column, Open Approach (ICD-10-PCS; principal; 2016-12-24)
DX: T84.226A Displacement of internal fixation device of vertebrae, initial encounter (principal); Z98.1 Arthrodesis status; Y79.8 Miscellaneous orthopedic devices associated with adverse incidents, not elsewhere classified; Z79.82 Long term (current) use of aspirin
CPT/HCPCS: C1713; G0378; G0379; J0690; J1100; J1720; J2001; J2405; J7030; J7512

== ENCOUNTER → 2017-02-06 | Day surgery (SDC) | payer MEDICARE ==
[~2017-02-06] VITALS: Ht 180.3 cm; Wt 76.1 kg
[~2017-02-06] MED LIST changes: +KCL - MICRO-K10 MEQ PO; +MUCINEX600 MG PO; +NORCO 5-325 TA1 EACH PO
--- NOTE | ~2017-02-06 | OR ---
PATIENT'S NAME: ZBIGNIEW MERAZ [facility] AGE: 86 Y [address] ROOM: [place] [address] LOCATION: [facility] ADMIT DATE: 02/06/2017 OR/Procedure Report DISCHARGE DATE: FAMILY PHYSICIAN: Nolan Bautista MD ATTENDING PHYSICIAN: Billy Fernando SURGEON: Billy Fernando MD STEREOTYPER: DATE OF PROCEDURE: 02/06/2017 PREOPERATIVE DIAGNOSIS: Dysphagia with possible food bolus. POSTOPERATIVE DIAGNOSIS: Dysphagia with possible food bolus. PROCEDURE PERFORMED: EGD. FINDINGS: The patient had a small hiatal hernia. No clear stricture was present. No food bolus. ESTIMATED BLOOD LOSS: Minimal. COMPLICATIONS: None. INDICATIONS: The patient is an 86-year-old male, who was concerned for food bolus in [place]. He was having difficulty swallowing. He was monitored, this continued, and he was sent here for EGD. We discussed the risks of EGD with the patient, benefits as well as alternatives and he wished to proceed. DESCRIPTION OF PROCEDURE: The patient was taken to the endoscopy suite, placed in left lateral decubitus position, and a bite block was placed. Flexible endoscope was inserted in the esophageal lumen. This advanced through the esophagus without difficulty. There was no significant mucosal irritation, no strictures, and no food bolus present. He did have a hiatal hernia present. The scope was advanced into the gastric lumen and the first and second portions of the duodenal without abnormalities. We withdrew the scope. Retroflexed the scope. A small hiatal hernia was present but no other significant abnormalities. We withdrew the scope back in the esophageal lumen. Again, he had no significant oral secretions present in the esophagus, no retained fluid, and again no visible stricture. The scope was withdrawn. He tolerated this well. POSTPROCEDURE RECOMMENDATIONS: Zbigniew had no food bolus today or other significant abnormalities. With the hiatal hernia, some of the symptomatology could be reflux related, however, this did seem acute. If he has ongoing symptoms, I would recommend upper GI series. PATIENT'S NAME: ZBIGNIEW MERAZ [facility] AGE: 86 Y [address] ROOM: [place] [address] LOCATION: [facility] ADMIT DATE: 02/06/2017 OR/Procedure Report DISCHARGE DATE: FAMILY PHYSICIAN: Nolan Bautista MD ATTENDING PHYSICIAN: Billy Fernando BILLY FERNANDO MD BJO/modl /[id number] d: 02/06/17 2302 t: 02/20/17 0853, OPERATIVE SUMMARY
== END ==
LOC: GOPP 08:00 → GEND 08:00
PROC: 0DJ08ZZ Inspection of Upper Intestinal Tract, Via Natural or Artificial Opening Endoscopic (ICD-10-PCS; principal; 2017-02-06)
DX: K44.9 Diaphragmatic hernia without obstruction or gangrene (principal); R13.10 Dysphagia, unspecified; J44.9 Chronic obstructive pulmonary disease, unspecified; K21.9 Gastro-esophageal reflux disease without esophagitis; I11.0 Hypertensive heart disease with heart failure; I50.9 Heart failure, unspecified; M10.9 Gout, unspecified; I25.10 Atherosclerotic heart disease of native coronary artery without angina pectoris; M17.0 Bilateral primary osteoarthritis of knee; Z88.8 Allergy status to other drugs, medicaments and biological substances; Z79.899 Other long term (current) drug therapy; Z79.891 Long term (current) use of opiate analgesic; Z95.0 Presence of cardiac pacemaker
CPT/HCPCS: J7030